=== PATIENT | male | born 1930 | race Caucasian/White ===

== ENCOUNTER → 2017-08-30 11:05 | Outpatient (CLI) | payer OTHER | END | disposition home or self-care (01) | LOC: D.RAD 08:00 | DX: S72.001A Fracture of unspecified part of neck of right femur, initial encounter for closed fracture (principal); X58.XXXA Exposure to other specified factors, initial encounter; Y93.89 Activity, other specified; Y92.89 Other specified places as the place of occurrence of the external cause ==

== ENCOUNTER 2017-09-22 17:46 | Inpatient (IN) | payer MEDICARE, OTHER ==
[~2017-09-22] VITALS: Ht 185.4 cm; Wt 89.5 kg
--- NOTE | ~2017-09-22 | OP ---
PATIENT NAME: ISABEL ALVARADO MEDICAL RECORD: [id number] :34 LOCATION:[id number] ADMISSION DATE:09/22/17 SURGEON: LORENA TODD MD DATE OF OPERATION: 09/24/2017 PREOPERATIVE DIAGNOSIS: Fracture of the left proximal humerus. POSTOPERATIVE DIAGNOSIS: Fracture of the left proximal humerus. PROCEDURE: Open reduction internal fixation of fracture of left proximal humerus. SURGEON: Lorena Todd MD ANESTHESIA: General. INTRAOPERATIVE COMPLICATIONS: None. SUMMARY OF PATHOLOGIC FINDINGS: The patient had slight valgus impacted fracture. This valgus was partially corrected. The patient also had a greater tuberosity, which reduced nicely. OPERATIVE SUMMARY IN DETAIL: After obtaining the appropriate preoperative orthopedic surgery consent as well as anesthetic consultation, evaluation and clearance, the patient was brought to the operating room and placed on the operating table in supine position. After adequate general laryngeal mask was administered, the patient was placed in the beach chair position. All pressure points were well padded. He was held firmly down using the vacuum pack suction system. Left upper extremity and shoulder were prepped and draped in routine sterile fashion. Arm was held in the Trimano arm holding device. Deltopectoral incision was taken down. The deltoid was gently retracted laterally using the brown retractor. Conjoined tendon was gently retracted medially using the PCL. Fracture reduction maneuver was performed. This was viewed under radiographs and felt to be adequate. The [place] AxSOS 3-hole plate was used with the proximal locking and distal locking screws along with compression screws for appropriate realignment of the fragment. This was all done under fluoroscopic guidance. After appropriate fixation was complete, final radiographs taken on AP and lateral planes submitted for radiologist review. The wound was copiously irrigated and closed with #1 Vicryl followed by 2-0 Vicryl and skin lakshmi. Sterile dressings were applied. The patient was awakened, taken to recovery room in stable condition. All final instrument, needle and sponge counts were correct. TRANSINT:[id number] Voice Confirmation ID: [id number] DOCUMENT ID: [id number] LORENA TODD MD at 0826 CC: [id number] DICTATION DATE: 09/24/17 1243 HUMAN MACHINE INTERFACE ENGINEER: 09/24/17 1630 ADM IN [facility] [address] [place] [address]
[2017-09-22 19:34] LABS: BASOPHILS 0.5 % (0-2); HEMATOCRIT 35.3 % (42.0-54.0); HEMOGLOBIN 11.6 g/dL (13.5-17.5); LYMPHOCYTES 21.6 % (15-50); MCH 31.4 pg (26.0-34.0); MCHC 32.9 g/dL (31.0-37.0); MCV 95.7 fL (80.0-100.0); MEAN PLATELET VOLUME 10.8 fL (7.4-10.4); NEUTROPHILS 68.9 % (40-80); PLATELET COUNT 142 10x3/uL (130-400); RBC 3.69 10x6/uL (4.20-6.10); RDW 14.5 % (11.5-14.5); WBC 4.4 10x3/uL (4.8-10.8)
[2017-09-22 19:46] LABS: INR 1.2 (0.85-1.17); PROTIME 14.8 SECONDS (11.6-15.0)
[2017-09-22 19:54] LABS: ALBUMIN 3.8 g/dL (3.4-5.0); ALKALINE PHOSPHATASE 53 U/L (46-116); ALT (SGPT) 18 U/L (10-68); BILIRUBIN - TOTAL 0.52 mg/dL (0.2-1.3); CALC OSMOLALITY 284 mosm/kg (275-300); CALCIUM 9.2 mg/dL (8.5-10.1); CARBON DIOXIDE 29.2 mmol/L (21.0-32.0); CHLORIDE - SERUM 104 mmol/L (98-107); CREATININE - SERUM 1.3 mg/dL (0.6-1.3); GLUCOSE 102 mg/dL (74-106); POTASSIUM - SERUM 4.4 mmol/L (3.5-5.1); PROTEIN - SERUM 6.5 g/dL (6.4-8.2); SODIUM 140 mmol/L (136-145); UREA NITROGEN 28 mg/dL (7-18); eGFR NON AFRICAN AMERICAN 56 mL/min (90-120)
[2017-09-22 20:00] LABS: CREATINE KINASE 76 UL (21-232); MAGNESIUM - SERUM 1.8 mg/dL (1.8-2.4); PRO BNP 352 pg/mL (0-450)
[2017-09-22 20:02] LABS: TROPONIN-I < 0.017 ng/mL (0.000-0.060)
[2017-09-22 20:34] LABS: APPEARANCE CLEAR (CLEAR); BILIRUBIN NEGATIVE (NEGATIVE); COLOR YELLOW (YELLOW); GLUCOSE NEGATIVE (NEGATIVE); KETONE NEGATIVE (NEGATIVE); NITRITE NEGATIVE (NEGATIVE); PROTEIN NEGATIVE (NEGATIVE); UROBILINOGEN NORMAL (NORMAL)
[2017-09-22 23:32] VITALS: BP 142/60; BMI 26.0
[2017-09-23] MEDS ORDERED: EXELON1 PATCH .1 TRANSDERM (03:56)
[2017-09-23] MEDS ORDERED: TOPROL XL25 MG PO (03:57)
[2017-09-23] MEDS ORDERED: ELIQUIS5 MG PO (04:01)
[2017-09-23] MEDS ORDERED: LIPITOR40 MG PO (04:01)
[2017-09-23] MEDS ORDERED: SINEMET 25-1001 EACH PO (04:03)
[2017-09-23] MEDS ORDERED: LISINOPRIL5 MG PO (04:04)
[2017-09-23] MEDS ORDERED: ADVAIR 250/501 DISK INH (04:04)
[2017-09-23] MEDS ORDERED: CARDURA2 MG PO (04:05)
[2017-09-23] MEDS ORDERED: NEXIUM40 MG PO (04:06)
[2017-09-23] MEDS ORDERED: ZOLOFT50 MG PO (04:10)
[2017-09-23 08:42] LABS: BASOPHILS 0.3 % (0-2); EOSINOPHILS 1.2 % (0-7); HEMATOCRIT 33.9 % (42.0-54.0); IMMATURE GRANULOCYTES 0.2 % (0-5); LYMPHOCYTES 24.3 % (15-50); MCH 31.3 pg (26.0-34.0); MCHC 32.4 g/dL (31.0-37.0); MCV 96.3 fL (80.0-100.0); MEAN PLATELET VOLUME 10.3 fL (7.4-10.4); MONOCYTES 10.4 % (2-11); NEUTROPHILS 63.6 % (40-80); PLATELET COUNT 138 10x3/uL (130-400); RBC 3.52 10x6/uL (4.20-6.10); RDW 14.6 % (11.5-14.5)
[2017-09-23 08:50] LABS: WBC 5.8 10x3/uL (4.8-10.8)
[2017-09-23 08:52] LABS: APTT 29.8 SECONDS (22.8-39.4); INR 1.13 (0.85-1.17); PROTIME 14.1 SECONDS (11.6-15.0)
[2017-09-23 08:53] VITALS: BP 131/56
[2017-09-23 09:05] LABS: ALBUMIN 3.3 g/dL (3.4-5.0); ANION GAP 9.9 mmol/L (8-16); BILIRUBIN - TOTAL 0.81 mg/dL (0.2-1.3); CALCIUM 8.9 mg/dL (8.5-10.1); CARBON DIOXIDE 29.3 mmol/L (21.0-32.0); CREATININE - SERUM 1.1 mg/dL (0.6-1.3); MAGNESIUM - SERUM 1.8 mg/dL (1.8-2.4); PHOSPHOROUS 3.8 mg/dL (2.5-4.9); POTASSIUM - SERUM 4.2 mmol/L (3.5-5.1); PROTEIN - SERUM 5.8 g/dL (6.4-8.2)
[2017-09-23 11:34] VITALS: BP 118/55
[2017-09-23 12:21] VITALS: Ht 185.4 cm; Wt 89.5 kg
[2017-09-23 16:23] VITALS: BP 120/62
[2017-09-23 20:00] VITALS: BP 127/51
[2017-09-24] VITALS: BP 134/61
[2017-09-24 04:00] VITALS: BP 148/67
[2017-09-24 08:24] VITALS: BP 152/72
[2017-09-24 12:31] VITALS: BP 125/61
[2017-09-24 22:35] VITALS: BP 124/62
[2017-09-25 01:02] VITALS: BP 116/54
[2017-09-25 06:09] VITALS: BP 123/70
[2017-09-25 08:13] LABS: HEMATOCRIT 31.6 % (42.0-54.0); HEMOGLOBIN 10.4 g/dL (13.5-17.5); MCH 31.1 pg (26.0-34.0); MCHC 32.9 g/dL (31.0-37.0); MCV 94.6 fL (80.0-100.0); MEAN PLATELET VOLUME 10.3 fL (7.4-10.4); RBC 3.34 10x6/uL (4.20-6.10); RDW 14.1 % (11.5-14.5); WBC 5.7 10x3/uL (4.8-10.8)
[2017-09-25 08:22] LABS: CALC OSMOLALITY 271 mosm/kg (275-300); CALCIUM 8.7 mg/dL (8.5-10.1); CHLORIDE - SERUM 101 mmol/L (98-107); CREATININE - SERUM 0.9 mg/dL (0.6-1.3); GLUCOSE 121 mg/dL (74-106); POTASSIUM - SERUM 4.2 mmol/L (3.5-5.1); SODIUM 134 mmol/L (136-145); UREA NITROGEN 20 mg/dL (7-18); eGFR NON AFRICAN AMERICAN 85 mL/min (90-120)
[2017-09-25 08:26] VITALS: BP 129/82
[2017-09-25 13:42] VITALS: BP 155/82
[2017-09-25 16:40] VITALS: BP 106/54
[2017-09-25 23:40] VITALS: BP 89/40
[2017-09-26 06:13] VITALS: BP 106/51
[2017-09-26 08:33] VITALS: BP 109/51
[2017-09-26] MEDS ORDERED: ULTRAM50 MG PO (08:34)
[2017-09-26 23:07] VITALS: BP 112/48
[2017-09-27 05:23] VITALS: BP 114/54
[2017-09-27 08:05] VITALS: BP 118/53
== END 2017-09-27 13:25 | DRG 494 ==
LOC: D.ER 17:46 → D.MS 21:27
PROVIDERS: Nurse Practitioner Family; Orthopaedic Surgery
PROC: 0PSD04Z Reposition Left Humeral Head with Internal Fixation Device, Open Approach (ICD-10-PCS; principal; 2017-09-24 10:00)
DX: S42.202A Unspecified fracture of upper end of left humerus, initial encounter for closed fracture (principal); W01.0XXA Fall on same level from slipping, tripping and stumbling without subsequent striking against object, initial encounter; I10 Essential (primary) hypertension; J44.9 Chronic obstructive pulmonary disease, unspecified; E78.5 Hyperlipidemia, unspecified; Z85.038 Personal history of other malignant neoplasm of large intestine

== ENCOUNTER 2017-12-02 16:47 | Emergency (ER) | payer MEDICARE, OTHER ==
[2017-09-23 12:21] VITALS: BMI 26.0
[~2017-12-02 16:47] MED LIST: ADVAIR 250/501 DISK INH; CARDURA2 MG PO; ELIQUIS5 MG PO; EXELON1 PATCH .1 TRANSDERM; LIPITOR40 MG PO; LISINOPRIL5 MG PO; NEXIUM40 MG PO; SINEMET 25-1001 EACH PO; TOPROL XL25 MG PO; ULTRAM50 MG PO; ZOLOFT50 MG PO
[2017-12-02 17:45] LABS: BASOPHILS 0.6 % (0-2); HEMATOCRIT 33.9 % (42.0-54.0); HEMOGLOBIN 10.9 g/dL (13.5-17.5); LYMPHOCYTES 22.1 % (15-50); MCHC 32.2 g/dL (31.0-37.0); MCV 96.3 fL (80.0-100.0); MONOCYTES 9.8 % (2-11); NEUTROPHILS 66.5 % (40-80); PLATELET COUNT 190 10x3/uL (130-400); RBC 3.52 10x6/uL (4.20-6.10); WBC 4.9 10x3/uL (4.8-10.8)
[2017-12-02 17:59] LABS: ALBUMIN 3.5 g/dL (3.4-5.0); ALKALINE PHOSPHATASE 69 U/L (46-116); ALT (SGPT) 11 U/L (10-68); BILIRUBIN - TOTAL 0.47 mg/dL (0.2-1.3); CALC OSMOLALITY 281 mosm/kg (275-300); CARBON DIOXIDE 28.8 mmol/L (21.0-32.0); CHLORIDE - SERUM 104 mmol/L (98-107); GLUCOSE 99 mg/dL (74-106); PROTEIN - SERUM 6.4 g/dL (6.4-8.2); SODIUM 139 mmol/L (136-145); UREA NITROGEN 24 mg/dL (7-18); eGFR NON AFRICAN AMERICAN 75 mL/min (90-120)
[2017-12-02 18:09] LABS: APPEARANCE SLT CLOUDY (CLEAR); BILIRUBIN NEGATIVE (NEGATIVE); COLOR YELLOW (YELLOW); GLUCOSE NEGATIVE (NEGATIVE); KETONE NEGATIVE (NEGATIVE); NITRITE NEGATIVE (NEGATIVE); PROTEIN NEGATIVE (NEGATIVE); UROBILINOGEN NORMAL (NORMAL)
[2017-12-02 18:11] LABS: RED CELLS - URINE 0-5 /hpf (0-5); WHITE CELLS - URINE 0-5 /hpf (0-5)
[2017-12-02 18:12] LABS: BACTERIA MODERATE /hpf (NONE SEEN)
== END 2017-12-02 21:16 | disposition home or self-care (01) ==
LOC: D.ER 16:47
PROVIDERS: Family Medicine
DX: R41.82 Altered mental status, unspecified (principal)